=== PATIENT | female | born 1980 | race Caucasian/White ===

== ENCOUNTER 2022-05-17 10:14 | Emergency (ER) | payer OTHER, SELFPAY ==
[2022-05-17 10:25] VITALS: BP 124/83; PULSE 77; RESP 18; TEMP 36.4; O2SAT 100
--- NOTE | 2022-05-17 10:43 | ED.URI ---
HPI - URI/Sore Throat General Chief Complaint: Upper Respiratory Infection Stated Complaint: Sore Throat,Rt Ear Irritation Time Seen by Provider: 05/17/22 10:37 Source: patient Mode of arrival: ambulatory Limitations: no limitations History of Present Illness HPI Narrative: Patient presents today complaining of a one-week history of nasal congestion with sore throat and right ear pain that started yesterday. She currently rates pain 5/10 has been taking Tylenol and Advil without relief. Denies any sick contacts. Related Data Home Medications Medication Instructions Recorded Confirmed estradiol-norethindrone acet 1 1 tablet PO DAILY 07/23/19 05/17/22 mg-0.5 mg tablet Allergies Allergy/AdvReac Type Severity Reaction Status Date / Time No Known Allergies Allergy Verified 05/17/22 10:24 Review of Systems Review of Systems: CONSTITUTIONAL: Denies body aches, fever, chills, or sweats. EYES: Denies visual changes, redness, or discharge. ENT: Denies rhinorrhea. + Sore throat, right ear pain, congestion CARDIOVASCULAR: Denies chest pain, palpitations, or edema. RESPIRATORY: Denies cough or dyspnea. GASTROINTESTINAL: Denies abdominal pain, nausea, vomiting, or diarrhea. GENITOURINARY: Denies dysuria or hematuria. SKIN: Denies rash, itching, or wounds. MUSCULOSKELETAL: Denies back pain, joint pain, or myalgia. NEUROLOGIC: Denies headache, numbness, tingling, or weakness. PSYCH: Denies depression or anxiety. [facility] Past Medical History Medical History (Updated 05/17/22 @ 10:47 by Dana Perez, DRUG ABUSE TECHNICIAN, ) Mixed hyperlipidemia Wellness examination Surgical History Surgical History Hx of hernia repair 1981 Family History Family History Mother High cholesterol Father Heart disease Grandparent Meningitis Grandparent Heart disease Grandparent Diabetes mellitus Grandparent No problems noted. Social History Social History Smoking status: Never smoker Alcohol intake: current Alcohol use details: Beer/Wine Socially Substance use: never Comments At time of signature, I have reviewed and agree with nursing past medical, surgical, social and family history unless otherwise noted. Please see nursing chart for further information. There is no relevant family history pertinent to the presenting complaint Exam Narrative: GENERAL: Well-appearing, well-nourished, and in no acute distress. HEAD: Normocephalic, atraumatic. EYES: EOMI. No redness or drainage. Conjunctivae normal. ENT: Mucous membranes pink and moist. Nares clear. No rhinorrhea. right serous effusion, left ear normal. Throat Erythematous without edema or exudate. Uvula midline. NECK: Normal AROM. Supple. No lymphadenopathy. CHEST: No respiratory distress. Clear to auscultation. HEART: Regular rate and rhythm. No murmur appreciated. Normal peripheral pulses. EXTREMITIES: Normal range of motion. No edema. SKIN: Warm, dry, no rash. Capillary refill normal. Normal skin turgor. NEURO: No focal deficits. Alert and oriented x3. Gait steady. PSYCH: Normal affect. No signs of depression or anxiety. Course Course Level of Care: Express Care Visit Vital Signs Vital signs: Vital Signs Temperature 97.6 F 05/17/22 10:25 Pulse Rate 77 05/17/22 10:25 Respiratory Rate 18 05/17/22 10:25 Blood Pressure 124/83 05/17/22 10:25 Pulse Oximetry 100 05/17/22 10:25 Oxygen Delivery Room Air 05/17/22 10:25 Temperature 97.6 F 05/17/22 10:25 Pulse Rate 77 05/17/22 10:25 Respiratory Rate 18 05/17/22 10:25 Blood Pressure 124/83 05/17/22 10:25 Pulse Oximetry 100 05/17/22 10:25 Oxygen Delivery Room Air 05/17/22 10:25 Reviewed. Pt has been instructed to follow up with her PCP re
== END 2022-05-17 10:48 | disposition home or self-care (01) ==
PROVIDERS: Emergency Provider Nurse Practitioner
DX: J06.9 Acute upper respiratory infection, unspecified (principal); H65.01 Acute serous otitis media, right ear; E78.2 Mixed hyperlipidemia
CPT/HCPCS: 87081; 87880; 99213; G0463

== ENCOUNTER 2022-10-26 09:18 | Emergency (ER) | payer OTHER, SELFPAY ==
[2022-10-26 09:29] VITALS: BP 108/73; PULSE 69; RESP 18; TEMP 36.3; O2SAT 100
--- NOTE | 2022-10-26 09:39 | ED.URI ---
HPI - URI/Sore Throat General Chief Complaint: Upper Respiratory Infection Stated Complaint: Sore Throat,Lt Ear Irritation Time Seen by Provider: 10/26/22 09:39 Source: patient Mode of arrival: ambulatory Limitations: no limitations History of Present Illness HPI Narrative: 42-year-old female presents with complaint of sore throat, body aches, chills, left ear pain for 4 days. No cough or nasal. Denies nausea , vomiting, diarrhea. all systems reviewed and negative except as noted above. Related Data Home Medications Medication Instructions Recorded Confirmed estradiol-norethindrone acet 1 1 tablet PO DAILY 07/23/19 10/26/22 mg-0.5 mg tablet Allergies Allergy/AdvReac Type Severity Reaction Status Date / Time No Known Allergies Allergy Verified 10/26/22 09:39 Review of Systems Review of Systems: CONSTITUTIONAL: Denies fever, chills, or sweats. EYES: Denies visual changes, redness, or discharge. ENT: Denies rhinorrhea, congestion . Reports sore throat, left ear pain CARDIOVASCULAR: Denies chest pain, palpitations, or edema. RESPIRATORY: Denies cough or dyspnea. GASTROINTESTINAL: Denies abdominal pain, nausea, vomiting, or diarrhea. GENITOURINARY: Denies dysuria or hematuria. SKIN: Denies rash or itching. MUSCULOSKELETAL: Denies back pain, joint pain, or myalgia. NEUROLOGIC: Denies headache, numbness, or weakness. PSYCHIATRIC: Denies anxiety or depression. All other systems reviewed are negative, except as documented in HPI. [facility] Past Medical History Medical History (Updated 10/26/22 @ 10:06 by Christina Johnson NP) Mixed hyperlipidemia Wellness examination Surgical History Surgical History Hx of hernia repair 1981 Family History Family History Mother High cholesterol Father Heart disease Grandparent Meningitis Grandparent Heart disease Grandparent Diabetes mellitus Grandparent No problems noted. Social History Social History Smoking status: Never smoker Alcohol intake: current Alcohol use details: Beer/Wine Socially Substance use: never Comments At time of signature, agree with nursing past medical, surgical, social and family history. There is no relevant family history pertinent to the presenting complaint. Exam Narrative: GENERAL: This is a well-nourished, well-developed patient, in no apparent distress. HEAD: normocephalic, atraumatic. EYES: PERRL. Sclera clear/white. Vision is grossly intact. EARS: External ears normal, auditory canals clear and without drainage, TMs normal without perforation. Hearing grossly intact. NOSE: External nose normal with no obvious nasal discharge, nares without redness, no rhinorrhea. THROAT: Mucous membranes moist, erythema, bilateral tonsillar exudate, tonsils 1+ NECK: Neck supple, non-tender without lymphadenopathy, masses or thyromegaly. CARDIOVASCULAR: Regular rate and rhythm without murmurs, gallops, or rubs. RESPIRATORY: Clear to auscultation. Breath sounds equal bilaterally. No wheezes, rales, or rhonchi. SKIN: warm, Dry, intact with no suspicious lesions or rash, good texture and turgor. NEURO: awake, alert, and oriented to person, place and time. There were no obvious focal neurologic abnormalities. EXTREMITIES: No joint tenderness, effusion, or edema noted. Course Course Level of Care: Express Care Visit Vital Signs Vital signs: Vital Signs Temperature 36.3 C L 10/26/22 09:29 Pulse Rate 69 10/26/22 09:29 Respiratory Rate 18 10/26/22 09:29 Blood Pressure 108/73 10/26/22 09:29 Pulse Oximetry 100 10/26/22 09:29 Oxygen Delivery Room Air 10/26/22 09:29 Temperature 36.3 C L 10/26/22 09:29 Pulse Rate 69 10/26/22 09:29 Respiratory Rate 18 10/26/22 09:29
== END 2022-10-26 10:08 | disposition home or self-care (01) ==
PROVIDERS: Emergency Provider Nurse Practitioner Family
DX: J02.0 Streptococcal pharyngitis (principal); E78.2 Mixed hyperlipidemia
CPT/HCPCS: 87081; 87880; 99213; G0463

== ENCOUNTER 2023-05-29 08:02 | Emergency (ER) | payer OTHER, SELFPAY ==
--- NOTE | ~2023-05-29 | XR_ITS ---
EXAMINATION: XR chest 2V DATE: 05/29/2023 09:04 INDICATION: Cough. TECHNIQUE: Frontal and lateral views of the chest were obtained. COMPARISON: None. FINDINGS: There is no pneumonia, pleural effusion, or pneumothorax. The heart size is normal. IMPRESSION: 1. No acute cardiopulmonary disease. Reviewed, dictated and finalized at location A. ETCAR OPERATOR
[2023-05-29 08:25] VITALS: BP 128/81; PULSE 98; RESP 16; TEMP 36.7; O2SAT 97
[2023-05-29 08:29] VITALS: BP 128/81; PULSE 98; RESP 16; TEMP 36.7; O2SAT 97
--- NOTE | 2023-05-29 08:52 | ED.URI ---
HPI - URI/Sore Throat General Chief Complaint: Upper Respiratory Infection Stated Complaint: cough,congestion Source: patient Mode of arrival: ambulatory Limitations: no limitations History of Present Illness HPI Narrative: 43-year-old female presents to [facility] with complaints of productive cough, wheezing and nasal congestion past 6 weeks. Patient reports that she was given amoxicillin approximately 6 weeks ago from her primary care provider for an ear infection. Patient reports that she was then prescribed Tessalon Perles and inhaler approximately 3 weeks ago from a tele doc. patient is a nonsmoker. Patient denies sick contacts. Patient denies recent travel. Patient reports that she did have a low-grade fever when symptoms started approximately 6 weeks ago. MD elicited complaint: cough and nasal congestion Onset (ago): week(s) (6) Consistency: intermittent Description of mucous: yellow Able to tolerate fluids by mouth: Yes Treatments prior to arrival: antibiotics Related Data Home Medications Medication Instructions Recorded Confirmed estradiol-norethindrone acet 1 1 tablet PO DAILY 07/23/19 05/29/23 mg-0.5 mg tablet albuterol sulfate 90 mcg/actuation 2 puff inhalation PRN PRN 05/29/23 05/29/23 aerosol inhaler Shortness Of Breath Or Wheezing benzonatate 100 mg capsule 100 mg PO PRN PRN Cough 05/29/23 05/29/23 Allergies Allergy/AdvReac Type Severity Reaction Status Date / Time No Known Allergies Allergy Verified 05/29/23 08:26 Review of Systems Constitutional: Constitutional: Denies chills, Denies fatigue, Denies fever(s) and Denies weakness ENT: Denies vertigo and Denies dizziness Respiratory: Respiratory: Reports chest congestion, Reports cough, Denies dyspnea and Reports wheezing Gastrointestinal: Gastrointestinal: Denies diarrhea, Denies nausea and Denies vomiting Integumentary/Breasts: Skin/Breast: Denies erythema and Denies rash Neurologic: Denies dizziness, Denies syncope and Denies headache(s) [facility] Past Medical History Medical History (Updated 05/29/23 @ 09:24 by Keya Prabhakar APRN) Mixed hyperlipidemia Wellness examination Surgical History Surgical History Hx of hernia repair 1981 Family History Family History Mother High cholesterol Father Heart disease Grandparent Meningitis Grandparent Heart disease Grandparent Diabetes mellitus Grandparent No problems noted. Social History Social History Smoking status: Never smoker Alcohol intake: current Alcohol use details: Beer/Wine Socially Substance use: never Comments At time of signature, I agree with nursing past medical, surgical, social and family history. There is no relevant family history pertinent to the presenting complaint. Exam Const: General: healthy appearing and no acute distress Nutritional Appearance: well nourished Orientation/consciousness: patient oriented x3 HENMT: Head: normal to inspection Ears: external ears normal, TM's normal bilaterally and EAC's normal Face and sinus: normal facial exam Mouth: Yes Normal oral and palatal mucosa present, Yes lip normal and Yes moist mucous membranes Throat: posterior oropharynx normal and uvula midline Other: Mild bilateral nasal congestion noted Eyes: Conjunctivae: conjunctivae normal Neck: Neck: normal visual inspection Resp: Effort & Inspection: normal respiratory effort Auscultation: wheezes scattered wheezes Other: Left is worse than right Cardio: Rate: regular rate Rhythm: regular rhythm Heart sounds: no murmurs Skin: General skin exam: normal color Rashes: no rashes Neuro: General: patient oriented x3 Speech: normal speech Extrem: General: normal to inspection Psych: Affect: normal affect Attitude:
== END 2023-05-29 09:25 | disposition home or self-care (01) ==
PROVIDERS: Emergency Provider Nurse Practitioner Family
DX: J40 Bronchitis, not specified as acute or chronic (principal); E78.2 Mixed hyperlipidemia
CPT/HCPCS: 71046; 99213; G0463